=== PATIENT | male | born 1965 | race Hispanic/Latino ===

== ENCOUNTER 2021-07-11 07:13 | Day surgery (SDC) | payer OTHER ==
[2021-07-11] VITALS (7 sets, daily range): BP systolic 102–114; BP diastolic 68–78
[~2021-07-11 07:13] MED LIST: 0.9%NACL 1000ML 1,000 ML IV ONE; AEC81 PO; ATOR40TA71 PO; EMPA1TAB19 PO; FINA5TAB41 PO; FISH1CAP27 PO; LISI1TAB29 PO; METO-408 PO; SEMA3TAB PO
[2021-07-11] MEDS ORDERED: GLYCOPYRROLATE 1 MG/5 ML SYRINGE ONE (09:46)
[2021-07-11] MEDS ORDERED: PROPOFOL 10 MG/ML 20ML VIAL IV ONE ×3 (09:46→10:16)
[2021-07-11] MEDS ORDERED: LIDOCAINE HCL 1% 20 ML VIAL ONE (09:46)
== END 2021-07-11 11:06 | disposition home or self-care (01) ==
LOC: DAH 07:13 → ENDO 07:13
PROVIDERS: ATTEND Internal Medicine Gastroenterology
DX: D49.0 Neoplasm of unspecified behavior of digestive system (principal); Z20.822 Contact with and (suspected) exposure to COVID-19; K31.89 Other diseases of stomach and duodenum; I10 Essential (primary) hypertension; E11.9 Type 2 diabetes mellitus without complications; R63.4 Abnormal weight loss; E78.5 Hyperlipidemia, unspecified; Z79.899 Other long term (current) drug therapy; Z90.49 Acquired absence of other specified parts of digestive tract; Z79.82 Long term (current) use of aspirin; Z79.01 Long term (current) use of anticoagulants; Z79.84 Long term (current) use of oral hypoglycemic drugs; Z72.89 Other problems related to lifestyle; Z86.010 Personal history of colon polyps
CPT/HCPCS: 43238; 82948 ×2; 87426; A4215 ×3; A4221; A4222; A4223; A4606; A4657 ×2; A4663; J2704 ×3; J3490; J7030